=== PATIENT | male | born 1985 | race Caucasian/White ===

== ENCOUNTER 2016-07-17 20:53 | Emergency (ER) | payer SELFPAY ==
[~2016-07-17 20:53] MED LIST: COLACE100 M1 PO; HYDROCODON-ACE1 EA16 PO; IBUPROFEN200 M3 PO; METHYLPREDNISOLO PO; NO HOME MEDS; NORCO 5-325 TA1 EACH PO; NORCO 5/325 TAB1 TAB PO; PERI-COLACE TA1 EACH PO
[2016-07-17] MEDS ORDERED: TYLENOL EXTRA500 M1 PO (21:08)
[2016-07-17] MEDS ORDERED: NORCO 5-325 TA1 EACH PO (21:23)
[2016-07-17] MEDS ORDERED: CEFUROXIME500 M1 PO (21:23)
== END 2016-07-17 22:09 ==
LOC: EDMED 20:53
DX: J32.9 Chronic sinusitis, unspecified (principal); H66.93 Otitis media, unspecified, bilateral; F17.200 Nicotine dependence, unspecified, uncomplicated